=== PATIENT | female | born 1965 | race Caucasian/White ===

== ENCOUNTER → 2018-01-18 | Outpatient (CLI) | payer BC ==
[2018-01-18 11:30] LABS: Basophils % (A) 1 %; Eosinophils # (A) 0.2 k/uL (0-0.7); Eosinophils % (A) 3 %; HCT 43.7 % (34.0-46.0); HGB 14.3 gm/dL (11.4-16.0); Lymphocytes # (A) 1.8 k/uL (1.0-4.8); Lymphocytes % (A) 33 %; MCH 29.6 pg (25.0-35.0); MCHC 32.6 g/dL (31.0-37.0); MCV 90.9 fL (80.0-100.0); Monocytes # (A) 0.3 k/uL (0-1.0); Monocytes % (A) 6 %; Neutrophils % (A) 56 %; Platelet Count 229 k/uL (150-450); RBC 4.81 m/uL (3.80-5.40); RDW 12.7 % (11.5-15.5); WBC 5.5 k/uL (3.8-10.6)
[2018-01-18 11:35] LABS: ALT 35 U/L (9-52); AST 22 U/L (14-36); Albumin 4.3 g/dL (3.5-5.0); Alkaline Phosphatase 82 U/L (38-126); Anion Gap 12 mmol/L; Blood Urea Nitrogen 15 mg/dL (7-17); Calcium 9.5 mg/dL (8.4-10.2); Carbon Dioxide 27 mmol/L (22-30); Chloride 105 mmol/L (98-107); Cholesterol 233 mg/dL (<200); Glucose 107 mg/dL (74-99); HDL Cholesterol 76 mg/dL (40-60); LDL Cholesterol,Calculated 137 mg/dL (0-99); Potassium 4.6 mmol/L (3.5-5.1); Sodium 144 mmol/L (137-145); Total Bilirubin 0.5 mg/dL (0.2-1.3); Triglycerides 101 mg/dL (<150)
== END | disposition home or self-care (01) ==
LOC: LABWHC1 10:47
PROVIDERS: ATTEND Family Medicine
DX: Z00.00 Encounter for general adult medical examination without abnormal findings (principal); R53.83 Other fatigue
CPT/HCPCS: 36415; 80053; 80061; 84443; 85025

== ENCOUNTER → 2018-02-04 | Outpatient (CLI) | payer BC ==
--- NOTE | 2018-02-05 09:53 | MM ---
Reason for exam: screening (asymptomatic). Last mammogram was performed 15 years and 10 months ago. Physical Findings: A clinical breast exam by your physician is recommended on an annual basis and results should be correlated with mammographic findings. MG 3D Screening Mammo W/Cad Bilateral CC and MLO view(s) were taken. Prior study comparison: April 15, 2002, bilateral screening mammogram. The breast tissue is heterogeneously dense. This may lower the sensitivity of mammography. Stable benign calcifications. There is chronic nodularity bilaterally. There is no dominant lesion. No significant changes when compared with prior studies. ASSESSMENT: Benign, BI-RAD 2 RECOMMENDATION: Routine screening mammogram of both breasts in 1 year.
== END | disposition home or self-care (01) ==
LOC: RADMAMWWP 14:56
PROVIDERS: ATTEND Family Medicine
DX: Z12.31 Encounter for screening mammogram for malignant neoplasm of breast (principal)
CPT/HCPCS: 77063; 77067

== ENCOUNTER → 2019-03-15 | Outpatient (CLI) | payer BC ==
--- NOTE | 2019-03-16 09:51 | MM ---
Reason for exam: screening (asymptomatic). Last mammogram was performed 1 year and 1 month ago. Physical Findings: A clinical breast exam by your physician is recommended on an annual basis and results should be correlated with mammographic findings. MG 3D Screening Mammo W/Cad Bilateral CC and MLO view(s) were taken. Prior study comparison: February 04, 2018, bilateral MG 3d screening mammo w/cad. April 15, 2002, bilateral screening mammogram. The breast tissue is heterogeneously dense. This may lower the sensitivity of mammography. No significant changes when compared with prior studies. ASSESSMENT: Benign, BI-RAD 2 RECOMMENDATION: Routine screening mammogram of both breasts in 1 year.
== END | disposition home or self-care (01) ==
LOC: RADMAMWWP 14:56
PROVIDERS: ATTEND Family Medicine
DX: Z12.31 Encounter for screening mammogram for malignant neoplasm of breast (principal)
CPT/HCPCS: 77063; 77067

== ENCOUNTER 2020-03-19 20:49 | Observation (INO) | payer BC ==
[2020-03-19] MEDS ORDERED: SODIUM CHLORIDE 0.9% 1,000 ML IV STA (21:32)
[2020-03-19] MEDS ORDERED: ASPIRIN 81 MG PO STA (21:32)
--- NOTE | 2020-03-19 21:38 | ED ---
General Adult HPI - General Chief complaint: Arrhythmia/Palpitations Stated complaint: Palpitations Time Seen by Provider: 03/19/20 21:16 Source: patient, family, RN notes reviewed Mode of arrival: ambulatory Limitations: no limitations - History of Present Illness Initial comments: Patient is a pleasant 54-year-old female presenting to the emergency Department with palpitations. Symptoms have been intermittent throughout the day. Patient feels her heart is pounding or skipping. Patient did her check her heart rate however it was not elevated, was only around 80. Patient has had some tightness in her chest and still does have some little bit. Patient unsure if she may have had some mild dyspnea. No nausea or diaphoresis. Patient has had somewhat similar symptoms previously however not as severe or lasting as long. - Related Data Allergies Allergy/AdvReac Type Severity Reaction Status Date / Time No Known Allergies Allergy Verified 03/19/20 20:55 Review of Systems ROS Statement: Those systems with pertinent positive or pertinent negative responses have been documented in the HPI. ROS Other: All systems not noted in ROS Statement are negative. Constitutional: Denies: fever Eyes: Denies: eye pain ENT: Denies: ear pain Respiratory: Reports: as per HPI Cardiovascular: Reports: as per HPI, palpitations Endocrine: Denies: fatigue Gastrointestinal: Denies: abdominal pain Genitourinary: Denies: dysuria Musculoskeletal: Denies: back pain Skin: Denies: rash Neurological: Denies: weakness Past Medical History Past Medical History: Asthma, COPD, Hypertension History of Any Multi-Drug Resistant Organisms: None Reported Past Surgical History: Cholecystectomy, Tonsillectomy Past Psychological History: No Psychological Hx Reported Smoking Status: Former smoker Past Alcohol Use History: Occasional Past Drug Use History: None Reported General Exam Limitations: no limitations General appearance: alert, in no apparent distress Head exam: Present: normocephalic Eye exam: Present: normal appearance Neck exam: Present: normal inspection Respiratory exam: Present: normal lung sounds bilaterally Cardiovascular Exam: Present: regular rate, normal rhythm, normal heart sounds Expanded Peripheral pulses: 2+: Radial (R), Radial (L), Dorsalis Pedis (R), Dorsalis Pedis (L) GI/Abdominal exam: Present: soft. Absent: tenderness Extremities exam: Present: normal inspection. Absent: pedal edema, calf tenderness Neurological exam: Present: alert Psychiatric exam: Present: normal affect, normal mood Skin exam: Present: normal color Course Vital Signs 03/19/20 03/19/20 20:51 22:30 Temperature 98.5 F Pulse Rate 89 90 Respiratory 20 16 Rate Blood Pressure 157/90 149/81 O2 Sat by Pulse 97 97 Oximetry EKG Findings - EKG Comments: EKG Findings:: Normal sinus rhythm 85. TX 162. QRS 82. QT 374. QTC 445. Normal axis. Normal QRS. No acute ST change. Medical Decision Making - Medical Decision Making Patient reevaluated and resting comfortably in bed. No palpitations. Patient still having mild chest tightness. Patient and family updated on results and plan. Case was discussed with practitioner Wilfrid, who will admit covering for Dr. Rowe, covering for Dr. Reddy. - Lab Data Result diagrams: 03/19/20 21:09 03/19/20 21:09 Lab Results 03/19/20 03/19/20 03/19/20 Range/Units 21:09 21:09 21:09 WBC 8.9 (3.8-10.6) k/uL RBC 4.38 (3.80-5.40) m/uL Hgb 13.4 (11.4-16.0) gm/dL Hct 40.3 (34.0-46.0) % MCV 92.0 (80.0-100.0) fL MCH 30.6 (25.0-35.0) pg MCHC 33.2 (31.0-37.0) g/dL RDW 12.9 (11.5-15.5) % Plt Count 229 (150-450) k/uL Neutrophils % 67 % Lymphocytes % 24 % Monocytes % 5 % Eosinophils % 2 % Basophils % 1 % Neutrophils # 6.0 (1.3-7.7) k/uL Lymphocytes # 2.1 (1.0-4.8) k/uL Monocytes # 0.5 (0-1.0) k/uL Eosinophils # 0.2 (0-0.7) k/uL Basophils # 0.1 (0-0.2) k/uL PT 9.4 (9.0-12.0) sec INR 0.9 (<1.2) APTT 22.8 (22.0-30.0) sec D-Dimer <0.17 (<0.60) mg/L FEU Sodium 136 L (137-145) mmol/L Potassium 4.4 (3.5-5.1) mmol/L Chloride 103 (98-107) mmol/L Carbon Dioxide 24 (22-30) mmol/L Anion Gap 9 mmol/L BUN 16 (7-17) mg/dL Creatinine 0.50 L (0.52-1.04) mg/dL Est GFR (CKD-EPI)AfAm >90 (>60 ml/min/1.73 sqM) Est GFR (CKD-EPI)NonAf >90 (>60 ml/min/1.73 sqM) Glucose 109 H (74-99) mg/dL Calcium 9.4 (8.4-10.2) mg/dL Magnesium 2.2 (1.6-2.3) mg/dL Total Bilirubin 0.3 (0.2-1.3) mg/dL AST 25 (14-36) U/L ALT 26 (4-34) U/L Alkaline Phosphatase 91 (38-126) U/L Troponin I (0.000-0.034) ng/mL Total Protein 7.4 (6.3-8.2) g/dL Albumin 4.6 (3.5-5.0) g/dL TSH 2.590 (0.465-4.680) mIU/L Free T4 1.24 (0.78-2.19) ng/dL Free T3 pg/mL 3.5 (2.8-5.3) pg/ml 03/19/20 Range/Units 21:09 WBC (3.8-10.6) k/uL RBC (3.80-5.40) m/uL Hgb (11.4-16.0) gm/dL Hct (34.0-46.0) % MCV (80.0-100.0) fL MCH (25.0-35.0) pg MCHC (31.0-37.0) g/dL RDW (11.5-15.5) % Plt Count (150-450) k/uL Neutrophils % % Lymphocytes % % Monocytes % % Eosinophils % % Basophils % % Neutrophils # (1.3-7.7) k/uL Lymphocytes # (1.0-4.8) k/uL Monocytes # (0-1.0) k/uL Eosinophils # (0-0.7) k/uL Basophils # (0-0.2) k/uL PT (9.0-12.0) sec INR (<1.2) APTT (22.0-30.0) sec D-Dimer (<0.60) mg/L FEU Sodium (137-145) mmol/L Potassium (3.5-5.1) mmol/L Chloride (98-107) mmol/L Carbon Dioxide (22-30) mmol/L Anion Gap mmol/L BUN (7-17) mg/dL Creatinine (0.52-1.04) mg/dL Est GFR (CKD-EPI)AfAm (>60 ml/min/1.73 sqM) Est GFR (CKD-EPI)NonAf (>60 ml/min/1.73 sqM) Glucose (74-99) mg/dL Calcium (8.4-10.2) mg/dL Magnesium (1.6-2.3) mg/dL Total Bilirubin (0.2-1.3) mg/dL AST (14-36) U/L ALT (4-34) U/L Alkaline Phosphatase (38-126) U/L Troponin I <0.012 (0.000-0.034) ng/mL Total Protein (6.3-8.2) g/dL Albumin (3.5-5.0) g/dL TSH (0.465-4.680) mIU/L Free T4 (0.78-2.19) ng/dL Free T3 pg/mL (2.8-5.3) pg/ml - Radiology Data Radiology results: image reviewed (Chest x-ray shows no acute process) Disposition Clinical Impression: Chest pain, Palpitations Disposition: ADMITTED IP TO THIS HOSP Is patient prescribed a controlled substance at d/c from ED?: No Referrals: Johnnie Taylor MD [Primary Care Provider] - 1-2 days Decision Time: 22:58
[2020-03-19 21:51] LABS: Basophils # (A) 0.1 k/uL (0-0.2); Basophils % (A) 1 %; Eosinophils # (A) 0.2 k/uL (0-0.7); Eosinophils % (A) 2 %; HCT 40.3 % (34.0-46.0); HGB 13.4 gm/dL (11.4-16.0); Lymphocytes # (A) 2.1 k/uL (1.0-4.8); Lymphocytes % (A) 24 %; MCH 30.6 pg (25.0-35.0); MCHC 33.2 g/dL (31.0-37.0); Mean Platelet Volume 8.7; Monocytes # (A) 0.5 k/uL (0-1.0); Monocytes % (A) 5 %; Neutrophils % (A) 67 %; Platelet Count 229 k/uL (150-450); RBC 4.38 m/uL (3.80-5.40); RDW 12.9 % (11.5-15.5); WBC 8.9 k/uL (3.8-10.6)
[2020-03-19 22:02] LABS: ALT 26 U/L (4-34); AST 25 U/L (14-36); African American GFR (CKD) >90 (>60 ml/min/1.73 sqM); Albumin 4.6 g/dL (3.5-5.0); Alkaline Phosphatase 91 U/L (38-126); Anion Gap 9 mmol/L; Blood Urea Nitrogen 16 mg/dL (7-17); Calcium 9.4 mg/dL (8.4-10.2); Carbon Dioxide 24 mmol/L (22-30); Chloride 103 mmol/L (98-107); Glucose 109 mg/dL (74-99); Magnesium 2.2 mg/dL (1.6-2.3); Non-African American GFR(CKD) >90 (>60 ml/min/1.73 sqM); Sodium 136 mmol/L (137-145); Total Bilirubin 0.3 mg/dL (0.2-1.3); Total Protein 7.4 g/dL (6.3-8.2)
[2020-03-19 22:04] LABS: Potassium 4.4 mmol/L (3.5-5.1)
[2020-03-19 22:08] LABS: D-Dimer <0.17 mg/L FEU (<0.60); INR 0.9 (<1.2); Partial Thromboplastin Time 22.8 sec (22.0-30.0); Prothrombin Time 9.4 sec (9.0-12.0)
--- NOTE | 2020-03-19 22:11 | XR ---
EXAMINATION TYPE: XR chest 2V DATE OF EXAM: 03/19/2020 COMPARISON: NONE HISTORY: Chest pain TECHNIQUE: FINDINGS: Heart and mediastinum are within normal limits. Lungs are clear. Diaphragm is normal. There are no hilar masses. There are chest leads. Bony thorax is intact. IMPRESSION: No active cardiopulmonary disease. Normal heart.
[2020-03-19 22:18] LABS: T4, Free (Free Thyroxine) 1.24 ng/dL (0.78-2.19)
[2020-03-19] MEDS ORDERED: NITROGLYCERIN SL TABS 0.4 MG TAB SUBLINGUAL PRN (22:58)
[2020-03-20] MEDS: NITROGLYCERIN OINT 1 INCH/GM PACKET TOPICAL SCH ×4 (01:00→18:07)
[2020-03-20 04:08] LABS: Cholesterol 226 mg/dL (<200); HDL Cholesterol 83 mg/dL (40-60); LDL Cholesterol,Calculated 127 mg/dL (0-99); Triglycerides 82 mg/dL (<150)
[2020-03-20] MEDS ORDERED: ASPIRIN 325 MG TAB PO SCH (09:00)
--- NOTE | 2020-03-20 11:38 | P.CRDCN ---
History of Present Illness Consult date: 03/20/20 Chief complaint: Palpitation History of present illness: This is a very pleasant 54-year-old female patient with a past medical history significant for obesity, sleep apnea, and hypertension, presented to the emergency room complaining of claudication. The patient was in her usual state of health until about 3 days ago when she started experiencing symptoms of palpitation. The symptom seems to be intermittent and associated with dizziness but no syncope. Yesterday she did have an episode of chest discomfort with the palpitation. She described the discomfort as dull, in the mid of the chest, without radiation, and without any loss of consciousness or sweating or syncope. No history of coronary artery disease or congestive heart failure or cardiac arrhythmia. The patient does have history of hypertension and she was on losartan as an outpatient. The EKG this time showed sinus rhythm with nonspecific changes. The chest x-ray did not show any acute abnormalities. 3 sets of cardiac enzymes were checked and came in to be unremarkable. So far the patient has been maintaining normal sinus mechanism throughout her hospital stay in the emergency room and please note that the patient was seen in the emergency room. I am going to obtain a stress test to rule out severe underlying coronary artery disease and also an echocardiogram to establish an LV function and evaluated and the cardiac valves. Past Medical History Past Medical History: Asthma, Hypertension History of Any Multi-Drug Resistant Organisms: None Reported Past Surgical History: Cholecystectomy, Tonsillectomy Past Anesthesia/Blood Transfusion Reactions: No Reported Reaction Past Psychological History: No Psychological Hx Reported Smoking Status: Former smoker Past Alcohol Use History: Occasional Past Drug Use History: None Reported Medications and Allergies Home Medications Medication Instructions Recorded Confirmed Type Losartan Potassium [Cozaar] 25 mg PO DAILY 03/20/20 03/20/20 History Losartan [Cozaar] 03/20/20 History Montelukast Sodium [Singulair] 10 mg PO DAILY 03/20/20 03/20/20 History Allergies Allergy/AdvReac Type Severity Reaction Status Date / Time No Known Allergies Allergy Verified 03/19/20 20:55 Physical Exam Vitals: Vital Signs Temp Pulse Pulse Resp BP Pulse Ox 03/20/20 10:56 91 18 152/80 98 03/20/20 08:49 92 03/20/20 08:46 98.0 F 80 18 150/82 98 03/20/20 06:35 89 128/77 94 L 03/20/20 04:38 67 20 115/59 98 03/20/20 03:20 96.9 F L 87 16 115/59 98 03/19/20 22:30 90 16 149/81 97 03/19/20 20:51 98.5 F 89 20 157/90 97 Intake and Output 03/19/20 03/20/20 03/20/20 22:59 06:59 14:59 Other: Weight 72.575 kg 72.575 kg - Constitutional General appearance: no acute distress - Respiratory Respiratory: bilateral: CTA - Cardiovascular Rhythm: regular Heart sounds: normal: S1, S2 Results 03/19/20 21:09 03/19/20 21:09 Cardiac Enzymes 03/19/20 03/19/20 03/20/20 Range/Units 21:09 21:09 03:25 AST 25 (14-36) U/L Troponin I <0.012 <0.012 (0.000-0.034) ng/mL 03/20/20 Range/Units 08:59 AST (14-36) U/L Troponin I <0.012 (0.000-0.034) ng/mL Coagulation 03/19/20 Range/Units 21:09 PT 9.4 (9.0-12.0) sec APTT 22.8 (22.0-30.0) sec Lipids 03/20/20 Range/Units 03:25 Triglycerides 82 (<150) mg/dL Cholesterol 226 H (<200) mg/dL HDL Cholesterol 83 H (40-60) mg/dL CBC 03/19/20 Range/Units 21:09 WBC 8.9 (3.8-10.6) k/uL RBC 4.38 (3.80-5.40) m/uL Hgb 13.4 (11.4-16.0) gm/dL Hct 40.3 (34.0-46.0) % Plt Count 229 (150-450) k/uL Comprehensive Metabolic Panel 03/19/20 Range/Units 21:09 Sodium 136 L (137-145) mmol/L Potassium 4.4 (3.5-5.1) mmol/L Chloride 103 (98-107) mmol/L Carbon Dioxide 24 (22-30) mmol/L BUN 16 (7-17) mg/dL Creatinine 0.50 L (0.52-1.04) mg/dL Glucose 109 H (74-99) mg/dL Calcium 9.4 (8.4-10.2) mg/dL AST 25 (14-36) U/L ALT 26 (4-34) U/L Alkaline Phosphatase 91 (38-126) U/L Total Protein 7.4 (6.3-8.2) g/dL Albumin 4.6 (3.5-5.0) g/dL Current Medications Generic Name Dose Route Start Last Admin Trade Name Freq PRN Reason Stop Dose Admin Aspirin 325 mg 03/20/20 09:00 03/20/20 08:49 Aspirin PO 325 mg DAILY EROS Administration Nitroglycerin 0.4 mg 03/19/20 22:58 Nitrostat SUBLINGUAL Q5M PRN Chest Pain Nitroglycerin 0.5 inch 03/20/20 00:00 03/20/20 06:10 Nitro-Bid Oint TOPICAL Not Given Q6HR EROS Sodium Chloride 10 ml 03/20/20 09:00 03/20/20 08:48 Saline Flush IV Not Given BID EROS Intake and Output 03/19/20 03/20/20 03/20/20 22:59 06:59 14:59 Other: Weight 72.575 kg 72.575 kg 03/19/20 21:09 03/19/20 21:09 Assessment and Plan Assessment: Assessment #1 intermittent episodes of palpitation #2 intermittent episodes of atypical chest discomfort #3 hypertension #4 sleep apnea #5 history of smoking Plan #1 obtain a stress test to rule out severe CAD #2 obtain an echocardiogram was Doppler #3 follow-up with the patient Thank you for allowing us participate in her care
[2020-03-20 18:45] VITALS: BP 132/92; PULSE 79; RESP 18; TEMP 98.3
--- NOTE | 2020-03-21 21:22 | ECHOF ---
Referral Reason:CP MEASUREMENTS -------- HEIGHT: 152.4 cm WEIGHT: 76.2 kg BP: IVSd: 1.0 cm (0.6 - 1.1) LVIDd: 4.3 cm (3.9 - 5.3) LVPWd: 0.8 cm (0.6 - 1.1) IVSs: 1.4 cm LVIDs: 2.8 cm LVPWs: 1.2 cm LA Diam: 3.3 cm (2.7 - 3.8) RVIDd: 3.1 cm (< 3.3) LAESV Index (A-L): 22.72 ml/m Ao Diam: 2.6 cm (2.0 - 3.7) AV Cusp: 1.9 cm (1.5 - 2.6) EPSS: 0.4 cm MV E Saleem: 0.94 m/s MV DecT: 173 ms MV A Saleem: 0.74 m/s MV E/A Ratio: 1.27 RAP: 5.00 mmHg RVSP: 38.19 mmHg MV EF SLOPE: 104.55 mm/s (70 - 150) MV EXCURSION: 13.24 mm (> 18.000) FINDINGS -------- Sinus rhythm. This was a technically adequate study. The left ventricular size is normal. Left ventricular wall thickness is normal. Overall left vent ricular systolic function is normal with, an EF between 60 - 65 %. The right ventricle is normal in size. Normal LA size by volume 22+/-6 ml/m2. The right atrium is normal in size. Aneurysmal Interatrial septum. The aortic valve is trileaflet and appears structurally normal. Mild mitral annular calcification present. There is trace mitral regurgitation. Mild tricuspid regurgitation present. There is mild pulmonary hypertension. Trace/mild (physiologic) pulmonic regurgitation. The aortic root size is normal. Normal inferior vena cava with normal inspiratory collapse consistent with estimated right atrial pre ssure of 5 mmHg. There is no pericardial effusion. CONCLUSIONS -------- 1. Sinus rhythm. 2. This was a technically adequate study. 3. The left ventricular size is normal. 4. Left ventricular wall thickness is normal. 5. Overall left ventricular systolic function is normal with, an EF between 60 - 65 %. 6. The right ventricle is normal in size. 7. Normal LA size by volume 22+/-6 ml/m2. 8. The right atrium is normal in size. 9. Aneurysmal Interatrial septum. 10. The aortic valve is trileaflet and appears structurally normal. 11. Mild mitral annular calcification present. 12. There is trace mitral regurgitation. 13. Mild tricuspid regurgitation present. 14. There is mild pulmonary hypertension. 15. Trace/mild (physiologic) pulmonic regurgitation. 16. The aortic root size is normal. 17. Normal inferior vena cava with normal inspiratory collapse consistent with estimated right atrial pressure of 5 mmHg. 18. There is no pericardial effusion. OPERATIONS MANAGER: Pooja Mccormack RDCS
--- NOTE | 2020-03-22 07:28 | P.STRESS ---
- Stress Test Note Stress Test Results/Findings: Exam Performed: stress echo exercise Exam Date: 03/20/20 Reason for Exam: Palpitations Height: 5 ft Weight: 72.57 kg Protocol: Hernando Stage: 3 Duration of Exercise: 9:10 Resting Heart Rate: 85 Resting Blood Pressure: 130/71 Maximum Achieved Heart Rate: 154 Maximum Achieved Blood Pressure: 154/75 85% PMHR: 141 100% PMHR: 166 METS: 10.3 Technologist Comment: Stress Test Results/Findings: Baseline heart rate 85 beats a minute, Baseline blood pressure 130/71 mmHg Baseline 12-lead ECG shows sinus rhythm with normal ST segments Patient exercised on a Hernando protocol for 9 minutes 10 seconds achieving a peak heart rate of 154 beats a minute Normal blood pressure response to exercise There was no ECG is for ischemia n No exercise induced arrhythmias noted Baseline 2-D echo images showed normal LV size and systolic function without segmental wall motion amenities At peak exercise there was excellent augmentation of overall LV contractility, without development of any wall motion abnormalities @Recovery regional global LV systolic function with normal Impression Good exercise capacity No ECG or echocardiographic evidence of ischemia No exercise induced arrhythmias
--- NOTE | 2020-03-25 23:09 | P.HPIM ---
History of Present Illness H&P Date: 03/20/20 Nora Garcia is a 54-year-old F with PMH HTN, MARGIE, obesity who presented to the ED complaining of episodes including palpitations and chest discomfort over the past few days. The symptom seems to be intermittent and associated with dizziness but no syncope. Yesterday she did have an episode of chest discomfort with the palpitation. She described the discomfort as dull, in the mid of the chest, without radiation, no diaphoresis or syncope. In the ED her vitals were stable, labs and CXR unremarkable, EKG NSR. Cardiac enzymes were trended and negative. She was evaluated by cardiology in the ED and is scheduled for stress test. Review of Systems All systems: negative Constitutional: Reports malaise, Denies chills, Denies fever Eyes: denies blurred vision, denies pain Ears, nose, mouth and throat: Denies headache, Denies sore throat Cardiovascular: Reports chest pain, Reports palpitations, Denies shortness of breath Respiratory: Denies cough Gastrointestinal: Denies abdominal pain, Denies diarrhea, Denies nausea, Denies vomiting Genitourinary: Denies dysuria, Denies hematuria Musculoskeletal: Denies myalgias Integumentary: Denies pruritus, Denies rash Neurological: Denies numbness, Denies weakness Psychiatric: Denies anxiety, Denies depression Endocrine: Denies fatigue, Denies weight change Past Medical History Past Medical History: Asthma, Hypertension History of Any Multi-Drug Resistant Organisms: None Reported Past Surgical History: Cholecystectomy, Tonsillectomy Past Anesthesia/Blood Transfusion Reactions: No Reported Reaction Past Psychological History: No Psychological Hx Reported Smoking Status: Former smoker Past Alcohol Use History: Occasional Past Drug Use History: None Reported Medications and Allergies Home Medications Medication Instructions Recorded Confirmed Type Albuterol Sulfate [Proair Hfa] 2 puff INHALATION RT-QID PRN 03/20/20 03/20/20 History Beclomethasone Dip 80 Mcg/Puff 2 puff INHALATION RT-BID 03/20/20 03/20/20 History [Qvar 80 mcg] Losartan Potassium [Cozaar] 25 mg PO DAILY 03/20/20 03/20/20 History Montelukast Sodium [Singulair] 10 mg PO HS 03/20/20 03/20/20 History Allergies Allergy/AdvReac Type Severity Reaction Status Date / Time No Known Allergies Allergy Verified 03/20/20 15:55 Physical Exam General: well nourished, well developed, NAD. Vitals reviewed Eyes: PERRL, EOMI, conjunctiva normal HENT: normocephalic, mucus membranes moist Neck: supple, no JVD Lungs: normal respiratory effort, no wheezes or rales CV: Regular rate and rhythm, no murmur. Peripheral pulses 2+ Abdomen: soft, nondistended, no organomegaly Lymph: no cervical or axillary LAD Skin: warm and dry. Neuro: A&Ox3, normal mood and affect Results CBC & Chem 7: 03/19/20 21:09 03/19/20 21:09 Thrombosis Risk Factor Assmnt - Choose All That Apply Any of the Below Risk Factors Present?: Yes Each Factor Represents 1 point: Age 41-60 years Other Risk Factors: No Other congenital or acquired thrombophilia - If yes, enter type in comment: No Thrombosis Risk Factor Assessment Total Risk Factor Score: 1 Thrombosis Risk Factor Assessment Level: Low Risk Assessment and Plan (1) Chest pain Status: Acute Code(s): R07.9 - CHEST PAIN, UNSPECIFIED SNOMED Code(s): 85968438 (2) Palpitations Status: Acute Code(s): R00.2 - PALPITATIONS SNOMED Code(s): 50221492 Plan: 1. Chest pain. ACS ruled out. Cardiology consulted and stress test ordered 2. HTN. Continue losartan
--- NOTE | 2020-03-25 23:10 | P.DS ---
Providers Date of admission: 03/19/20 22:58 Expected date of discharge: 03/20/20 Attending physician: Johnnie Taylor MD Consults: 03/19/20 22:58 Consult Physician Urgent Consulting Provider: Prashanth Moss Consult Reason/Comments: Chest tightness and palp Do you want consulting provider notified?: Yes Primary care physician: Johnnie Taylor MD - Discharge Diagnosis(es) (1) Chest pain Status: Acute (2) Palpitations Status: Acute Hospital Course: Nora Garcia is a 54-year-old F with PMH HTN, MARGIE, obesity who presented to the ED complaining of episodes including palpitations and chest discomfort over the past few days. The symptom seems to be intermittent and associated with dizziness but no syncope. Yesterday she did have an episode of chest discomfort with the palpitation. She described the discomfort as dull, in the mid of the chest, without radiation, no diaphoresis or syncope. In the ED her vitals were stable, labs and CXR unremarkable, EKG NSR. Cardiac enzymes were trended and negative. She was evaluated by cardiology in the ED and underwent stress test which was negative. she is advised to follow up with her PCP. Patient Condition at Discharge: Good Plan - Discharge Summary Discharge Rx Participant: No New Discharge Prescriptions: Continue Montelukast Sodium [Singulair] 10 mg PO HS Losartan Potassium [Cozaar] 25 mg PO DAILY Beclomethasone Dip 80 Mcg/Puff [Qvar 80 mcg] 2 puff INHALATION RT-BID Albuterol Sulfate [Proair Hfa] 2 puff INHALATION RT-QID PRN PRN Reason: Shortness Of Breath Discharge Medication List Albuterol Sulfate [Proair Hfa] 2 puff INHALATION RT-QID PRN 03/20/20 [History] Beclomethasone Dip 80 Mcg/Puff [Qvar 80 mcg] 2 puff INHALATION RT-BID 03/20/20 [History] Losartan Potassium [Cozaar] 25 mg PO DAILY 03/20/20 [History] Montelukast Sodium [Singulair] 10 mg PO HS 03/20/20 [History] Follow up Appointment(s)/Referral(s): Johnnie Taylor MD [Primary Care Provider] - 1-2 days Patient Instructions/Handouts: Heart Palpitations (DC) Discharge Disposition: HOME SELF-CARE
== END 2020-03-20 19:58 | disposition home or self-care (01) ==
LOC: EC 20:49 → 3SCARD 22:58
PROVIDERS: ADMIT Family Medicine; ATTEND Family Medicine
DX: R07.89 Other chest pain (principal); R00.2 Palpitations; R42 Dizziness and giddiness; I10 Essential (primary) hypertension; I25.3 Aneurysm of heart; I07.1 Rheumatic tricuspid insufficiency; J44.9 Chronic obstructive pulmonary disease, unspecified; G47.33 Obstructive sleep apnea (adult) (pediatric); E66.9 Obesity, unspecified; Z68.31 Body mass index [BMI] 31.0-31.9, adult; Z90.49 Acquired absence of other specified parts of digestive tract; Z90.89 Acquired absence of other organs; Z87.891 Personal history of nicotine dependence; Z79.899 Other long term (current) drug therapy; Z79.51 Long term (current) use of inhaled steroids
CPT/HCPCS: 96360; 96361; 99285; 36415; 93005 ×2; 93306; 93351; 85379; 84439; 84481; 80061; 80053; 83735; 84443; 84484 ×2; 85025; 85610; 85730; 87635; 71046; G0378 ×2

== ENCOUNTER → 2020-07-23 | Outpatient (CLI) | payer BC ==
--- NOTE | 2020-07-24 13:59 | MM ---
Reason for exam: screening (asymptomatic). Last mammogram was performed 1 year and 4 months ago. Physical Findings: A clinical breast exam by your physician is recommended on an annual basis and results should be correlated with mammographic findings. MG 3D Screening Mammo W/Cad Bilateral CC and MLO view(s) were taken. Prior study comparison: March 15, 2019, bilateral MG 3d screening mammo w/cad. February 04, 2018, bilateral MG 3d screening mammo w/cad. The breast tissue is heterogeneously dense. This may lower the sensitivity of mammography. No significant changes when compared with prior studies. ASSESSMENT: Benign, BI-RAD 2 RECOMMENDATION: Routine screening mammogram of both breasts in 1 year.
== END | disposition home or self-care (01) ==
LOC: RADMAMWWP 14:54
PROVIDERS: ATTEND Family Medicine
DX: Z12.31 Encounter for screening mammogram for malignant neoplasm of breast (principal)
CPT/HCPCS: 77063; 77067

== ENCOUNTER → 2021-12-24 | Outpatient (CLI) | payer BC ==
--- NOTE | 2021-12-24 11:44 | MM ---
Reason for exam: screening (asymptomatic). Last mammogram was performed 1 year and 5 months ago. History: Patient is postmenopausal. Taking estrogen for 2 months. Taking progesterone for 2 months. Physical Findings: A clinical breast exam by your physician is recommended on an annual basis and results should be correlated with mammographic findings. MG 3D Screening Mammo W/Cad Bilateral CC and MLO view(s) were taken. Prior study comparison: July 23, 2020, bilateral MG 3d screening mammo w/cad. March 15, 2019, bilateral MG 3d screening mammo w/cad. The breast tissue is heterogeneously dense. This may lower the sensitivity of mammography. There are benign appearing round, vascular, dystrophic calcifications bilaterally. There is no discrete abnormality. ASSESSMENT: Benign, BI-RAD 2 RECOMMENDATION: Routine screening mammogram of both breasts in 1 year.
== END | disposition home or self-care (01) ==
LOC: RADMAMWWP 07:53
PROVIDERS: ATTEND Family Medicine
DX: Z12.31 Encounter for screening mammogram for malignant neoplasm of breast (principal); Z78.0 Asymptomatic menopausal state
CPT/HCPCS: 77063; 77067

== ENCOUNTER → 2025-05-23 | Outpatient (CLI) | payer OTHER ==
--- NOTE | 2025-05-23 12:59 | MM ---
Reason for Exam: Screening (asymptomatic). Last mammogram was performed 3 year(s) and 4 month(s) ago. Patient History: Menarche at age 13. First Full-Term at age 19. Postmenopausal. Estrogen for 2 months. Progesterone for 2 months. Risk Values: Neelima 5 year model risk: 1.0%. NCI Lifetime model risk: 5.3%. Prior Study Comparison: 03/15/2019 Bilateral Screening Mammogram, [facility]. 07/23/2020 Bilateral Screening Mammogram, [facility]. 12/24/2021 Bilateral Screening Mammogram, [facility]. Tissue Density: The breasts are heterogeneously dense, which may obscure small masses. Findings: Analyzed By CAD. Oval asymmetric density superior left MLO view middle depth is more pronounced and incompletely disperses on 3-D images. Further evaluation recommended. There is an adjacent area of chronic nodularity just posterior to this density. Benign oil cyst calcifications on both sides. Otherwise, no significant change. Overall Assessment: Incomplete: need additional imaging evaluation, BI-RAD 0 Management: Special View Mammogram of the left breast. [facility] will attempt to contact patient to return for supplemental views and ultrasound if indicated. [facility], , 05/23/2025 12:57 PM. Electronically signed and approved by: Milagros Gaitan M.D. Radiologist
== END | disposition home or self-care (01) ==
LOC: RADMAMWWP 09:28
PROVIDERS: ATTEND Physician Assistant Medical
DX: Z12.31 Encounter for screening mammogram for malignant neoplasm of breast (principal); R92.333 Mammographic heterogeneous density, bilateral breasts; R92.1 Mammographic calcification found on diagnostic imaging of breast; Z78.0 Asymptomatic menopausal state
CPT/HCPCS: 77063; 77067

== ENCOUNTER → 2025-05-24 | Outpatient (CLI) | payer OTHER ==
--- NOTE | 2025-05-24 10:32 | MM ---
Reason for Exam: Additional evaluation requested from abnormal screening. Last screening mammogram was performed less than 1 month ago. Patient History: Menarche at age 13. First Full-Term at age 19. Postmenopausal. Estrogen for 2 months. Progesterone for 2 months. Risk Values: Neelima 5 year model risk: 1.0%. NCI Lifetime model risk: 5.3%. Prior Study Comparison: 07/23/2020 Bilateral Screening Mammogram, [facility]. 12/24/2021 Bilateral Screening Mammogram, [facility]. 05/23/2025 Bilateral MG 3D screening mammo w/cad, [facility]. Tissue Density: Left: The breasts are heterogeneously dense, which may obscure small masses. Findings: Analyzed By CAD. The questioned superior asymmetric density on the MLO view appears to disperse on additional views suggesting benign superimposition shadow. Given the appearance on screening exam, precautionary 6 month follow-up is recommended. Overall Assessment: Probably benign, BI-RAD 3 Management: Diagnostic Mammogram of the left breast in 6 months. Results were given to the patient verbally at the time of exam. Patient should continue monthly self-breast exams. A clinical breast exam by your physician is recommended on an annual basis. This exam should not preclude additional follow-up of suspicious palpable abnormalities. Note on Neelima scores and lifetime risk: 1. A Neelima score greater than 3% is considered moderate risk. If this is the case, consider specialist referral to assess eligibility for a risk reducing agent. 2. If overall lifetime risk for the development of breast cancer is 20% or higher, the patient may qualify for future screening with alternating mammogram and breast MRI. [facility], , 05/24/2025 10:28 AM. Electronically signed and approved by: Milagros Gaitan M.D. Radiologist
== END | disposition home or self-care (01) ==
LOC: RADMAMWWP 10:01
PROVIDERS: ATTEND Physician Assistant Medical
DX: R92.8 Other abnormal and inconclusive findings on diagnostic imaging of breast (principal); R92.332 Mammographic heterogeneous density, left breast; Z78.0 Asymptomatic menopausal state
CPT/HCPCS: 77061; 77065